=== PATIENT | male | born 1995 | race Caucasian/White ===

== ENCOUNTER 2019-02-08 18:11 | Inpatient (IN) | payer OTHER ==
[2019-02-08 19:15] VITALS: BMI 28.3
--- NOTE | 2019-02-08 21:39 | HP ---
COWS - Scale Resting Pulse: 0= [place] 80 or Below Sweatin=Flushed/Facial Moisture Restless Observation: 0= Sits Still Pupil Size: 1= Pupils >than Normal Bone or Joint Aches: 2= Severe Diffuse Aches Runny Nose/ Eye Tearin= Runny Nose/Eyes GI Upset > 30mins: 2= Nausea/Diarrhea (nausea, no vomiting) Tremor Observation: 2= Slight Tremor Visible Yawning Observation: 0= None Anxiety or Irritability: 4=Extreme Anxiety Goose Flesh Skin: 0=Smooth Skin COWS Score: 15 CIWA Score - Admission Criteria OASAS Guidelines: Admission for Medically Managed Detox: Requires at least one of the followin. CIWA greater than 12 2. Seizures within the past 24 hours 3. Delirium tremens within the past 24 hours 4. Hallucinations within the past 24 hours 5. Acute intervention needed for co occurring medical disorder 6. Acute intervention needed for co occurring psychiatric disorder 7. Severe withdrawal that cannot be handled at a lower level of care (continued vomiting, continued diarrhea, abnormal vital signs) requiring intravenous medication and/or fluids 8. Admission ROS [facility] Chief Complaint: Heroin withdrawal symptoms Allergies/Adverse Reactions: Allergies Allergy/AdvReac Type Severity Reaction Status Date / Time Penicillins Allergy Verified 02/08/19 20:16 Sulfa (Sulfonamide Allergy Verified 02/08/19 20:16 Antibiotics) sulfamethoxazole Allergy Verified 02/08/19 20:16 [From Bactrim] trimethoprim [From Bactrim] Allergy Verified 02/08/19 20:16 History of Present Illness: 23 years old male w2 years of opiate dependence and 6 months of heroin dependence is seeking admission to detox. This is his first in patient admission to detox and first admission to [facility]. He denies medical history and denies suicidal ideation at this time. - Ebola screening Have you traveled outside of the country in the last 21 days: No (N) Have you had contact with anyone from an Ebola affected area: No Have you been sick,other than usual withdrawal symptoms: No Do you have a fever: No - Review of Systems Constitutional: Chills, Loss of Appetite, Malaise, Changes in sleep EENT: reports: Sinus Pressure Respiratory: reports: No Symptoms reported Cardiac: reports: No Symptoms Reported GI: reports: Nausea, Poor Appetite, Poor Fluid Intake, Abdominal cramping : reports: No Symptoms Reported Musculoskeletal: reports: No Symptoms Reported Integumentary: reports: No Symptoms Reported, Dryness, Flushing Neuro: reports: Tremors Endocrine: reports: No Symptoms Reported Hematology: reports: No Symptoms Reported Psychiatric: reports: Mood/Affect Appropiate, Orientated x3 Other Systems: Reviewed and Negative Patient History - Patient Medical History Hx Asthma: No Hx Chronic Obstructive Pulmonary Disease (COPD): No Hx Cardiac Disorders: No Hx Hypertension: No Hx Seizures: No Hx Diabetes: No Hx Gastrointestinal Disorders: No Hx Genitourinary Disorders: No Hx Sexually Transmitted Disorders: No Hx Renal Disease (ESRD): No Hx Depression: Yes (NOT ON MEDICATION) Hx Suicide Attempt: No (DENIES SUICIDAL IDEATIN) Hx Schizophrenia: No - Patient Surgical History Past Surgical History: No Hx Neurologic Surgery: No Hx Cataract Extraction: No Hx Cardiac Surgery: No Hx Lung Surgery: No Hx Breast Surgery: No Hx Breast Biopsy: No Hx Abdominal Surgery: No Hx Appendectomy: No Hx Cholecystectomy: No Hx Genitourinary Surgery: No Hx Section: No Hx Orthopedic Surgery: No Anesthesia Reaction: No - PPD History Previous Implant?: Yes Documented Results: Negative w/o proof Implanted On Prior R Admission?: No PPD to be Administered?: Yes - Reproductive History Patient is a Female of Child Bearing Age (11 -55 yrs old): No (MALE) - Smoking Cessation Smoking history: Current every day smoker Have you smoked in the past 12 months: Yes Aproximately how many cigarettes per day: 9 Hx Chewing Tobacco Use: No Initiated information on smoking cessation: Yes 'Breaking Loose' booklet given: 02/08/19 - Substance & Tx. History Hx Alcohol Use: No Hx Substance Use: Yes Substance Use Type: Cocaine, Marijuana, Opiates Hx Substance Use Treatment: No - Substances Abused Heroin Route: Inhalation Frequency: 1-3 times last 30 days Amount used: 2 bags Age of first use: 21 Date of Last Use: 02/08/19 Percocet Route: Oral Frequency: Daily Amount used: 100mg Age of first use: 21 Date of Last Use: 02/08/19 Family Disease History - Family Disease History Family History: Denies Admission Physical Exam [facility] - Vital Signs Vital Signs: Vital Signs - 24 hr 02/08/19 19:10 Temperature 96.8 F L Pulse Rate 67 Respiratory 18 Rate Blood Pressure 117/80 - Physical General Appearance: Yes: Appropriately Dressed, Moderate Distress, Sweating, Anxious HEENTM: Yes: EOMI, Normocephalic, Normal Voice, Pharynx Normal, Tm's normal Respiratory: Yes: Lungs Clear, No Accessory Muscle Use Neck: Yes: Supple Breast: Yes: Breast Exam Deferred Cardiology: Yes: Regular Rhythm, Regular Rate Abdominal: Yes: Normal Bowel Sounds Genitourinary: Yes: Within Normal Limits Back: Yes: Normal Inspection Musculoskeletal: Yes: full range of Motion Extremities: Yes: Normal Capillary Refill, Tremors 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
[2019-02-08] MEDS ORDERED: MENTHOL/PHENOL 1 EACH UD MM PRN (21:50)
[2019-02-08] MEDS ORDERED: MAGNESIUM CITRATE 300 ML BOTTLE PO PRN (21:50)
[2019-02-08] MEDS ORDERED: MAG HYDROX/AL HYDROX/SIMETH 30 ML UNIT-DOSE CUP PO PRN (21:50)
[2019-02-08] MEDS ORDERED: IBUPROFEN 400 MG TABLET (FP) PO PRN (21:50)
[2019-02-08] MEDS ORDERED: MAGNESIUM HYDROX 2400MG/30ML ORAL SUSPENSION 30 ML CUP PO PRN (21:50)
[2019-02-08] MEDS ORDERED: METHOCARBAMOL 500 MG TABLET PO PRN (21:50)
[2019-02-08] MEDS ORDERED: BISMUTH SUBSALICYLATE 524 MG/30 ML UD PO PRN (21:50)
[2019-02-08] MEDS ORDERED: NICOTINE POLACRILEX 2 MG GUM BUC PRN (21:50)
[2019-02-08] MEDS ORDERED: ACETAMINOPHEN 325 MG TABLET (FP) PO PRN ×2 (21:50)
[2019-02-08] MEDS: THIAMINE HCL 100 MG TABLET (FP) PO SCH (22:38)
[2019-02-08] MEDS: hydrOXYzine PAMOATE 25 MG CAPSULE (FP) PO PRN (22:38)
[2019-02-08] MEDS: MELATONIN 5 MG TABLETS PO PRN (22:39)
[2019-02-08] MEDS ORDERED: METHADONE HCL 10 MG TABLET (FOR DETOX USE ONLY) PO ONE (23:00)
[2019-02-09 10:00] LABS: HEMATOCRIT 39.1 % (35.4-49); HEMOGLOBIN 13.8 GM/dL (11.7-16.9); MCH 30.7 pg (25.7-33.7); MCHC 35.2 g/dl (32.0-35.9); MEAN CELL VOLUME 87.3 fl (80-96); MEAN PLT VOLUME 8.2 fl (7.5-11.1); PLATELET COUNT 285 K/MM3 (134-434); RBC 4.48 M/mm3 (4.00-5.60); RDW 12.8 % (11.9-15.9); WHITE BLOOD COUNT 4.7 K/mm3 (4.0-10.0)
[2019-02-09] MEDS ORDERED: METHADONE HCL 5 MG TABLET (FOR DETOX USE ONLY) PO ONE (10:00)
[2019-02-09 10:05] LABS: ALBUMIN 3.5 g/dl (3.4-5.0); ALK PHOS 73 U/L (45-117); ANION GAP 6 MMOL/L (8-16); BILIRUBIN,TOTAL 1.4 mg/dL (0.2-1); BLOOD UREA NITROGEN 10 mg/dL (7-18); CALCIUM 8.1 mg/dL (8.5-10.1); CHLORIDE 105 mmol/L (98-107); CO2 29 mmol/L (21-32); CREATININE 0.8 mg/dL (0.55-1.3); GLUCOSE,RANDOM 79 mg/dL (74-106); POTASSIUM 3.8 mmol/L (3.5-5.1); SGOT/AST 15 U/L (15-37); SGPT/ALT 20 U/L (13-61); SODIUM 140 mmol/L (136-145); TOT PROT 6.5 g/dl (6.4-8.2)
[2019-02-09] MEDS: PRENATAL VITAMINS W/ FOLIC ACID TABLET (FP) PO SCH (12:24)
[2019-02-09] MEDS: NICOTINE 14 MG/24 HOURS TOPICAL PATCH TD SCH (12:26)
--- NOTE | 2019-02-09 14:19 | PN ---
S COWS - Scale Resting Pulse: 0= [place] 80 or Below Sweatin= Chills/Flushing Restless Observation: 0= Sits Still Pupil Size: 0= Normal to Room Light Bone or Joint Aches: 2= Severe Diffuse Aches Runny Nose/ Eye Tearin= None GI Upset > 30mins: 2= Nausea/Diarrhea Tremor Observation of Outstretched Hands: 2= Slight Tremor Visible Yawning Observation: 1= 1-2x During Session Anxiety or Irritability: 2=Irritable/Anxious Goose Flesh Skin: 3=Piloerection COWS Score: 13 S Progress Note (SOAP) Subjective: Nausea, Fatigue, Body Aches. Objective: PATIENT A & O X 3. IN NO ACUTE DISTRESS. 02/09/19 14:21 Vital Signs Temperature 98.2 F 02/09/19 13:22 Pulse Rate 55 L 02/09/19 13:22 Respiratory Rate 18 02/09/19 13:22 Blood Pressure 140/70 02/09/19 13:22 O2 Sat by Pulse Oximetry (%) Laboratory Tests 02/09/19 02/09/19 02/09/19 07:40 07:40 07:40 WBC 4.7 RBC 4.48 Hgb 13.8 Hct 39.1 MCV 87.3 MCH 30.7 MCHC 35.2 RDW 12.8 Plt Count 285 MPV 8.2 Sodium 140 Potassium 3.8 Chloride 105 Carbon Dioxide 29 Anion Gap 6 L BUN 10 Creatinine 0.8 Creat Clearance w eGFR 119.80 Random Glucose 79 Calcium 8.1 L Total Bilirubin 1.4 H AST 15 ALT 20 Alkaline Phosphatase 73 Total Protein 6.5 Albumin 3.5 RPR Titer Nonreactive LABS NOTED. Assessment: 02/09/19 14:21 WITHDRAWAL SYMPTOMS. HYPOCALCEMIA. Plan: CONTINUE DETOX. OSCAL, 250 MG PO BID FOR LOW CA LEVEL.
[2019-02-09] MEDS: hydrOXYzine PAMOATE 25 MG CAPSULE (FP) PO PRN ×2 (17:03→23:03)
[2019-02-09] MEDS: cloNIDine HCL 0.1 MG TABLET PO PRN ×2 (17:03→23:03)
[2019-02-09] MEDS: CALCIUM 250MG/VIT-D 125 UNITS 1 COMBO TABLET PO SCH (22:11)
[2019-02-09] MEDS: THIAMINE HCL 100 MG TABLET (FP) PO SCH (22:11)
[2019-02-09] MEDS: MELATONIN 5 MG TABLETS PO PRN (22:11)
--- NOTE | 2019-02-09 22:52 | EKG ---
Test Reason : Blood Pressure : / mmHG Vent. Rate : 058 BPM Atrial Rate : 058 BPM P-R Int : 134 ms QRS Dur : 096 ms QT Int : 422 ms P-R-T Axes : 004 046 024 degrees QTc Int : 414 ms SINUS BRADYCARDIA NONSPECIFIC ST ABNORMALITY ABNORMAL ECG NO PREVIOUS ECGS AVAILABLE Confirmed by ДМИТРИЙ PARIS MD ([id number]) on 02/09/2019 10:52:36 PM Referred By: Confirmed By:ДМИТРИЙ PARIS MD
--- NOTE | 2019-02-10 09:54 | PN ---
[facility] COWS - Scale Resting Pulse: 0= [place] 80 or Below Sweatin= Chills/Flushing Restless Observation: 3= Extraneous Movement Pupil Size: 1= Pupils >than Normal Bone or Joint Aches: 2= Severe Diffuse Aches Runny Nose/ Eye Tearin= Nasal Congestion GI Upset > 30mins: 2= Nausea/Diarrhea Tremor Observation of Outstretched Hands: 2= Slight Tremor Visible Yawning Observation: 1= 1-2x During Session Anxiety or Irritability: 2=Irritable/Anxious Goose Flesh Skin: 0=Smooth Skin COWS Score: 15 [facility] Progress Note (SOAP) Subjective: alert,irritable,anxious,interrupted sleep,pain in the body and back Objective: 02/10/19 09:53 Vital Signs Temperature 98.3 F 02/10/19 09:25 Pulse Rate 50 L 02/10/19 09:25 Respiratory Rate 18 02/10/19 09:25 Blood Pressure 117/55 L 02/10/19 09:25 O2 Sat by Pulse Oximetry (%) Assessment: 02/10/19 09:53 withdrawal symptom Plan: continue detox
[2019-02-10] MEDS ORDERED: METHADONE HCL 10 MG TABLET (FOR DETOX USE ONLY) PO ONE (10:00)
[2019-02-10] MEDS: CALCIUM 250MG/VIT-D 125 UNITS 1 COMBO TABLET PO SCH ×2 (11:45→22:06)
[2019-02-10] MEDS: PRENATAL VITAMINS W/ FOLIC ACID TABLET (FP) PO SCH (11:45)
[2019-02-10] MEDS: NICOTINE 14 MG/24 HOURS TOPICAL PATCH TD SCH (11:48)
[2019-02-10] MEDS: cloNIDine HCL 0.1 MG TABLET PO PRN ×2 (14:18→22:06)
[2019-02-10] MEDS: THIAMINE HCL 100 MG TABLET (FP) PO SCH (22:04)
[2019-02-10] MEDS: MELATONIN 5 MG TABLETS PO PRN (22:07)
[2019-02-10] MEDS: hydrOXYzine PAMOATE 25 MG CAPSULE (FP) PO PRN (22:07)
[2019-02-11] MEDS ORDERED: traZODone HCL 50 MG TABLET (FP) PO ONE (00:06)
[2019-02-11] MEDS ORDERED: METHADONE HCL 5 MG TABLET (FOR DETOX USE ONLY) PO ONE (06:00)
[2019-02-11 09:35] VITALS: BP 127/75; PULSE 58; TEMP 58
--- NOTE | 2019-02-11 11:54 | DS ---
[facility] Detox Discharge Summary Admission Date: 02/08/19 Discharge Date: 02/11/19 - History Present History: Opioid Dependence Pertinent Past History: pt was admitted for opiate detox- was given a 3 day detox. Pt will be in rehab in [place] where he can get suboxone for continued Rx of his physical dependence. d/ w pt at length about the importance of MAT treatment of opioid use disorder - Physical Exam Results Vital Signs: Vital Signs Temperature 58 F L 02/11/19 09:35 Pulse Rate 58 L 02/11/19 09:35 Respiratory Rate 18 02/11/19 09:35 Blood Pressure 127/75 02/11/19 09:35 O2 Sat by Pulse Oximetry (%) - Treatment Hospital Course: Detox Protocol Followed, Detoxed Safely, Responded well, Discharged Condition Good, Rehab Referral Accepted - Medication Discharge Medications: Ambulatory Orders NK [No Known Home Medication] 02/08/19
== END 2019-02-11 10:32 | disposition home or self-care (01) | DRG 897 ==
LOC: YASAS 18:11 → Y6N 21:57
PROVIDERS: ADMIT Surgery; ATTEND Surgery
PROC: HZ2ZZZZ Detoxification Services for Substance Abuse Treatment (ICD-10-PCS; principal; 2019-02-08)
DX: F11.23 Opioid dependence with withdrawal (principal); E83.51 Hypocalcemia; Z88.0 Allergy status to penicillin; Z88.2 Allergy status to sulfonamides
CPT/HCPCS: 36415; 80053; 85027; 86593; 93005; 93010; J0735

== ENCOUNTER 2019-04-04 11:22 | Inpatient (IN) | payer OTHER ==
[2019-04-04 12:16] VITALS: BMI 28.4
--- NOTE | 2019-04-04 12:44 | HP ---
COWS - Scale Resting Pulse: 0= [place] 80 or Below Sweatin= Chills/Flushing Restless Observation: 1= Difficult to Sit Still Pupil Size: 1= Pupils >than Normal Bone or Joint Aches: 2= Severe Diffuse Aches Runny Nose/ Eye Tearin= Runny Nose/Eyes GI Upset > 30mins: 2= Nausea/Diarrhea Tremor Observation: 2= Slight Tremor Visible Yawning Observation: 1= 1-2x During Session Anxiety or Irritability: 2=Irritable/Anxious Goose Flesh Skin: 0=Smooth Skin COWS Score: 14 CIWA Score - Admission Criteria OASAS Guidelines: Admission for Medically Managed Detox: Requires at least one of the followin. CIWA greater than 12 2. Seizures within the past 24 hours 3. Delirium tremens within the past 24 hours 4. Hallucinations within the past 24 hours 5. Acute intervention needed for co occurring medical disorder 6. Acute intervention needed for co occurring psychiatric disorder 7. Severe withdrawal that cannot be handled at a lower level of care (continued vomiting, continued diarrhea, abnormal vital signs) requiring intravenous medication and/or fluids 8. Admission ROS S - HPI Chief Complaint: i need help to stop using opiate,cocaine and marijuana Allergies/Adverse Reactions: Allergies Allergy/AdvReac Type Severity Reaction Status Date / Time Penicillins Allergy Severe Hives Verified 04/04/19 12:08 Sulfa (Sulfonamide Allergy Severe Hives Verified 04/04/19 12:08 Antibiotics) sulfamethoxazole Allergy Severe Swelling Verified 04/04/19 12:08 [From Bactrim] trimethoprim [From Bactrim] Allergy Severe Swelling Verified 04/04/19 12:08 History of Present Illness: this 23 years old male with opiate dependence,seeking help,withdrawal symptom, had previous admission before insomnia last admission 02/08/19 to 02/11/19 stated need help to stop using may go to rehab after detox patient also marijuana dependence and cocaine abused Exam Limitations: No Limitations - Ebola screening Have you traveled outside of the country in the last 21 days: No (N) Have you had contact with anyone from an Ebola affected area: No Do you have a fever: No - Review of Systems Constitutional: Chills, Loss of Appetite, Malaise, Night Sweats, Changes in sleep, Weakness EENT: reports: Tearing, Nose Congestion Respiratory: reports: No Symptoms reported Cardiac: reports: No Symptoms Reported GI: reports: Nausea, Vomiting, Abdominal cramping : reports: No Symptoms Reported Musculoskeletal: reports: Back Pain, Joint Pain, Muscle Pain, Joint Stiffness Integumentary: reports: Dryness Neuro: reports: Headache, Tremors Endocrine: reports: No Symptoms Reported Hematology: reports: No Symptoms Reported Psychiatric: reports: No Sypmtoms Reported, Judgement Intact, Mood/Affect Appropiate, Orientated x3 Patient History - Patient Medical History Hx Anemia: No Hx Asthma: No Hx Chronic Obstructive Pulmonary Disease (COPD): No Hx Cancer: No Hx Cardiac Disorders: No Hx Hypertension: No Hx Hypercholesterolemia: No Hx Pacemaker: No HX Cerebrovascular Accident: No Hx Seizures: No Hx Dementia: No Hx Diabetes: No Hx Gastrointestinal Disorders: No Hx Liver Disease: No Hx Genitourinary Disorders: No Hx Sexually Transmitted Disorders: No Hx Renal Disease (ESRD): No Hx Thyroid Disease: No Hx Human Immunodeficiency Virus (HIV): No (03/28/19 negative) Hx Depression: Yes (NOT ON MEDICATION) Hx Suicide Attempt: No (DENIES SUICIDAL IDEATION) Hx Schizophrenia: No Other Medical History: no suicidal,no homicidal - Patient Surgical History Past Surgical History: No Hx Neurologic Surgery: No Hx Cataract Extraction: No Hx Cardiac Surgery: No Hx Lung Surgery: No Hx Breast Surgery: No Hx Breast Biopsy: No Hx Abdominal Surgery: No Hx Appendectomy: No Hx Cholecystectomy: No Hx Genitourinary Surgery: No Hx Section: No Hx Orthopedic Surgery: No Anesthesia Reaction: No - PPD History Previous Implant?: Yes Documented Results: Negative w/proof Implanted On Prior [facility] Admission?: Yes Date: 02/10/19 Results: 0 mm PPD to be Administered?: No - Smoking Cessation Smoking history: Current every day smoker Have you smoked in the past 12 months: Yes Aproximately how many cigarettes per day: 9 Hx Chewing Tobacco Use: No Initiated information on smoking cessation: Yes 'Breaking Loose' booklet given: 04/04/19 - Substance & Tx. History Hx Alcohol Use: No Hx Substance Use: Yes Substance Use Type: Opiates Hx Substance Use Treatment: Yes (last [facility] 02/08/19 to 02/11/19) - Substances abused Other Other (specify): Percocet Substance route: Oral Frequency: 3-6 times per week Amount used: (4) 10-325 Age of first use: 18 Date of last use: 04/03/19 Oxycontin Other (specify): oxcodone (M-30's) Substance route: Inhalation Frequency: Daily Amount used: 90mg Age of first use: 20 Date of last use: 04/04/19 Cocaine Substance route: Inhalation Frequency: 1-2 times per week Amount used: 100$ Age of first use: 23 Date of last use: 04/02/19 Marijuana/Hashish Substance route: Smoking Frequency: Daily Amount used: 50$ Age of first use: 18 Date of last use: 04/04/19 Family Disease History - Family Disease History Family History: Denies Admission Physical Exam [facility] - Vital Signs Vital Signs: Vital Signs - 24 hr 04/04/19 12:09 Temperature 98.5 F Pulse Rate 65 Respiratory 18 Rate Blood Pressure 115/66 - Physical General Appearance: Yes: Moderate Distress, Tremorous, Irritable, Sweating, Anxious HEENTM: Yes: Normal ENT Inspection, JAKE, Pharynx Normal Respiratory: Yes: Lungs Clear, Normal Breath Sounds, No Respiratory Distress Neck: Yes: Within Normal Limits, Supple, Trachea in good position Breast: Yes: Within Normal Limits Cardiology: Yes: Within Normal Limits, Regular Rhythm, Regular Rate, S1, S2 Abdominal: Yes: Within Normal Limits, Normal Bowel Sounds, Non Tender, Flat, Soft Genitourinary: Yes: Within Normal Limits Back: Yes: Muscle Spasm Musculoskeletal: Yes: full range of Motion, Back pain, Muscle Pain Extremities: Yes: Tremors 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, Fully Oriented, Alert, Motor Strength 5/5 Integumentary: Yes: Dry Lymphatic: Yes: Within Normal Limits - Diagnostic (1) Opioid dependence with withdrawal Status: Acute (2) Nicotine dependence Status: Chronic Qualifiers: Nicotine product type: cigarettes Substance use status: uncomplicated Qualified Code(s): F17.210 - Nicotine dependence, cigarettes, uncomplicated (3) Insomnia Status: Acute Qualifiers: Insomnia type: unspecified Qualified Code(s): G47.00 - Insomnia, unspecified (4) Cocaine abuse Status: Chronic (5) Cannabis dependence Status: Chronic Cleared for Admission S - Detox or Rehab [facility] Level of Care: Medically Managed Detox Regimen/Protocol: Methadone Breathalyzer - Breathalyzer Breathalyzer: 0 Inpatient Rehab Admission - Rehab Decision to Admit Inpatient rehab admission?: No
[2019-04-04] MEDS ORDERED: BISMUTH SUBSALICYLATE 524 MG/30 ML UD PO PRN (12:53)
[2019-04-04] MEDS ORDERED: IBUPROFEN 400 MG TABLET (FP) PO PRN (12:53)
[2019-04-04] MEDS ORDERED: MAG HYDROX/AL HYDROX/SIMETH 30 ML UNIT-DOSE CUP PO PRN (12:53)
[2019-04-04] MEDS ORDERED: MENTHOL/PHENOL 1 EACH UD MM PRN (12:53)
[2019-04-04] MEDS ORDERED: hydrOXYzine PAMOATE 25 MG CAPSULE (FP) PO PRN (12:53)
[2019-04-04] MEDS ORDERED: MAGNESIUM HYDROX 2400MG/30ML ORAL SUSPENSION 30 ML CUP PO PRN (12:53)
[2019-04-04] MEDS ORDERED: METHOCARBAMOL 500 MG TABLET PO PRN (12:53)
[2019-04-04] MEDS ORDERED: cloNIDine HCL 0.1 MG TABLET PO PRN (12:53)
[2019-04-04] MEDS ORDERED: MELATONIN 5 MG TABLETS PO PRN (12:53)
[2019-04-04] MEDS ORDERED: MAGNESIUM CITRATE 300 ML BOTTLE PO PRN (12:53)
[2019-04-04] MEDS ORDERED: ACETAMINOPHEN 325 MG TABLET (FP) PO PRN ×2 (12:53)
[2019-04-04] MEDS ORDERED: NICOTINE 21 MG/24 HOURS TOPICAL PATCH TD SCH (13:00)
[2019-04-04] MEDS ORDERED: METHADONE HCL 10 MG TABLET (FOR DETOX USE ONLY) PO ONE ×2 (13:04→23:00)
[2019-04-04] MEDS: diazePAM 5 MG TABLET PO PRN ×3 (13:43→23:35)
[2019-04-04 15:56] VITALS: BP 110/70; PULSE 79; TEMP 97.6
[2019-04-04] MEDS ORDERED: THIAMINE HCL 100 MG TABLET (FP) PO SCH (22:00)
--- NOTE | 2019-04-05 01:00 | DS ---
[facility] Detox Discharge Summary Admission Date: 04/04/19 Discharge Date: 04/05/19 - History Present History: Cannabis Dependence, Cocaine Dependence, Opioid Dependence Additional Comments: Opiate withdrawal and also using marijuana, cocaine and nicotine. - Physical Exam Results Vital Signs: Vital Signs Temperature 97.6 F 04/04/19 15:55 Pulse Rate 79 04/04/19 15:55 Respiratory Rate 18 04/04/19 15:55 Blood Pressure 110/70 04/04/19 15:55 O2 Sat by Pulse Oximetry (%) Pertinent Admission Physical Exam Findings: Patient admitted in withdrawal r/t opiate dependence. Co-occurring marijuana and cocaine dependence. Hx insomnia. Patient not in facility long enough to complete lab assessment. - Treatment Hospital Course: Detox Protocol Followed (Patient), Discharged Condition Good ( Patient was alert and oriented in no apparent distress. Gait steady. No tremors. ) - Medication Discharge Medications: Ambulatory Orders NK [No Known Home Medication] 02/08/19 - Diagnosis (1) Cannabis dependence Current Visit: Yes Status: Chronic (2) Cocaine abuse Current Visit: Yes Status: Chronic (3) Insomnia Current Visit: Yes Status: Acute Qualifiers: Insomnia type: unspecified Qualified Code(s): G47.00 - Insomnia, unspecified (4) Nicotine dependence Current Visit: Yes Status: Chronic Qualifiers: Nicotine product type: cigarettes Substance use status: uncomplicated Qualified Code(s): F17.210 - Nicotine dependence, cigarettes, uncomplicated (5) Opioid dependence with withdrawal Current Visit: Yes Status: Acute - AMA Did Patient Leave Against Medical Advice: Yes
--- NOTE | 2019-04-05 02:17 | PN ---
[facility] Progress Note Note: Patient states when came in was ill and sick and didn't realize the date. States has to leave for business reasons and unable to stay until a.m. Discussed overdose risks and prevention. Patient states he will get a Narcan Kit. Patient leaving AMA despite encouragement. States taking an Uber.
[2019-04-05] MEDS ORDERED: METHADONE HCL 10 MG TABLET (FOR DETOX USE ONLY) PO ONE (10:00)
[2019-04-05] MEDS ORDERED: PRENATAL VITAMINS W/ FOLIC ACID TABLET (FP) PO SCH (10:00)
[2019-04-06] MEDS ORDERED: METHADONE HCL 10 MG TABLET (FOR DETOX USE ONLY) PO ONE (10:00)
[2019-04-07] MEDS ORDERED: METHADONE HCL 10 MG TABLET (FOR DETOX USE ONLY) PO ONE (10:00)
[2019-04-07] MEDS ORDERED: METHADONE (DETOX) 10 MG, METHADONE (DETOX) 5 MG PO ONE (10:00)
[2019-04-08] MEDS ORDERED: METHADONE HCL 5 MG TABLET (FOR DETOX USE ONLY) PO ONE (06:00)
[2019-04-08] MEDS ORDERED: METHADONE HCL 10 MG TABLET (FOR DETOX USE ONLY) PO ONE (10:00)
[2019-04-09] MEDS ORDERED: METHADONE HCL 5 MG TABLET (FOR DETOX USE ONLY) PO ONE (06:00)
== END 2019-04-05 01:12 | disposition left against medical advice (07) | DRG 894 ==
LOC: YASAS 11:22 → Y3N 12:59
PROVIDERS: ADMIT Surgery; ATTEND Surgery
PROC: HZ2ZZZZ Detoxification Services for Substance Abuse Treatment (ICD-10-PCS; principal; 2019-04-04)
DX: F11.23 Opioid dependence with withdrawal (principal); F14.10 Cocaine abuse, uncomplicated; F12.20 Cannabis dependence, uncomplicated; F17.210 Nicotine dependence, cigarettes, uncomplicated; G47.00 Insomnia, unspecified; Z88.0 Allergy status to penicillin; Z88.2 Allergy status to sulfonamides

== ENCOUNTER 2019-05-03 20:12 | Inpatient (IN) | payer OTHER ==
[2019-05-03 20:26] VITALS: BMI 28.7
--- NOTE | 2019-05-03 20:43 | HP ---
COWS - Scale Resting Pulse: 1= [place] 81-100 Sweatin=Flushed/Facial Moisture Restless Observation: 1= Difficult to Sit Still Pupil Size: 1= Pupils >than Normal Bone or Joint Aches: 2= Severe Diffuse Aches Runny Nose/ Eye Tearin= Runny Nose/Eyes GI Upset > 30mins: 1= Stomach Cramp Tremor Observation: 4= Gross Tremor/Twitching Yawning Observation: 0= None Anxiety or Irritability: 2=Irritable/Anxious Goose Flesh Skin: 0=Smooth Skin COWS Score: 16 CIWA Score - Admission Criteria [facility]ASAS Guidelines: Admission for Medically Managed Detox: Requires at least one of the followin. CIWA greater than 12 2. Seizures within the past 24 hours 3. Delirium tremens within the past 24 hours 4. Hallucinations within the past 24 hours 5. Acute intervention needed for co occurring medical disorder 6. Acute intervention needed for co occurring psychiatric disorder 7. Severe withdrawal that cannot be handled at a lower level of care (continued vomiting, continued diarrhea, abnormal vital signs) requiring intravenous medication and/or fluids 8. Admission ROS S - HPI Chief Complaint: DEPENDENT ON PERCOCET, FENTANYL, COCAINE AND MARIJUANA Allergies/Adverse Reactions: Allergies Allergy/AdvReac Type Severity Reaction Status Date / Time Penicillins Allergy Severe Hives Verified 05/03/19 20:22 Sulfa (Sulfonamide Allergy Severe Hives Verified 05/03/19 20:22 Antibiotics) sulfamethoxazole Allergy Severe Swelling Verified 05/03/19 20:22 [From Bactrim] trimethoprim [From Bactrim] Allergy Severe Swelling Verified 05/03/19 20:22 History of Present Illness: THE PT. IS REQUESTING ADMISSION TO THE DETOX UNIT AND CAME FOR MEDICAL CLEARANCE. Exam Limitations: No Limitations - Ebola screening Have you traveled outside of the country in the last 21 days: No (N) Have you had contact with anyone from an Ebola affected area: No Have you been sick,other than usual withdrawal symptoms: No Do you have a fever: No - Review of Systems Constitutional: See HPI, Malaise, Weakness EENT: reports: See HPI, Nose Congestion Respiratory: reports: See HPI Cardiac: reports: See HPI GI: reports: See HPI, Nausea, Abdominal cramping : reports: No Symptoms Reported, See HPI Musculoskeletal: reports: See HPI, Muscle Pain, Muscle Weakness Integumentary: reports: See HPI, Flushing, Sweating Neuro: reports: See HPI, Headache, Tremors, Weakness Endocrine: reports: See HPI Hematology: reports: See HPI Psychiatric: reports: Judgement Intact, Orientated x3, Anxious, Depressed Patient History - Patient Medical History Hx Anemia: No Hx Asthma: No Hx Chronic Obstructive Pulmonary Disease (COPD): No Hx Cancer: No Hx Cardiac Disorders: No Hx Hypertension: No Hx Hypercholesterolemia: No Hx Pacemaker: No HX Cerebrovascular Accident: No Hx Seizures: No Hx Dementia: No Hx Diabetes: No Hx Gastrointestinal Disorders: No Hx Liver Disease: No Hx Genitourinary Disorders: No Hx Sexually Transmitted Disorders: No Hx Renal Disease (ESRD): No Hx Thyroid Disease: No Hx Human Immunodeficiency Virus (HIV): No (03/28/19 negative) Hx Hepatitis C: No Hx Depression: No Hx Suicide Attempt: No (DENIES SUICIDAL IDEATION) Hx Schizophrenia: No Other Medical History: ANXIETY ATTACKS NOW AND THEN - Patient Surgical History Past Surgical History: No Hx Neurologic Surgery: No Hx Cataract Extraction: No Hx Cardiac Surgery: No Hx Lung Surgery: No Hx Breast Surgery: No Hx Breast Biopsy: No Hx Abdominal Surgery: No Hx Appendectomy: No Hx Cholecystectomy: No Hx Genitourinary Surgery: No Hx Section: No Hx Orthopedic Surgery: No Anesthesia Reaction: No - PPD History Date: 02/10/19 Results: 0 mm - Smoking Cessation Smoking history: Current every day smoker Have you smoked in the past 12 months: Yes Aproximately how many cigarettes per day: 9 Hx Chewing Tobacco Use: No Initiated information on smoking cessation: Yes 'Breaking Loose' booklet given: 05/03/19 - Substance & Tx. History Hx Alcohol Use: No Hx Substance Use: Yes Substance Use Type: Cocaine, Marijuana, Opiates Hx Substance Use Treatment: Yes - Substances abused Other Other (specify): Percocet Substance route: Oral Frequency: 3-6 times per week Amount used: (4 10-325 Age of first use: 18 Date of last use: 05/01/19 Oxycontin Other (specify): FENTANYL TABS. Substance route: Inhalation Frequency: Daily Amount used: 30mg X UP TO 10 TABS. Age of first use: 20 Date of last use: 05/01/19 Cocaine Substance route: Inhalation Frequency: 1-2 times per week Amount used: 100$ Age of first use: 23 Date of last use: 05/01/19 Marijuana/Hashish Substance route: Smoking Frequency: Daily Amount used: 50$ Age of first use: 18 Date of last use: 05/01/19 Family Disease History - Family Disease History Family History: Denies Admission Physical Exam [facility] - Vital Signs Vital Signs: Vital Signs - 24 hr 05/03/19 20:22 Temperature 98.2 F Pulse Rate 88 Respiratory 18 Rate Blood Pressure 146/97 - Physical General Appearance: Yes: No Apparent Distress, Nourished, Appropriately Dressed , Tremorous, Sweating, Anxious HEENTM: Yes: Hearing grossly Normal, Normocephalic, Normal Voice, JAKE, Pharynx Normal Respiratory: Yes: Chest Non-Tender, Lungs Clear, Normal Breath Sounds, No Respiratory Distress, No Accessory Muscle Use Neck: Yes: No masses,lesions,Nodules, Supple, Trachea in good position Breast: Yes: Breast Exam Deferred, Axillae without masses Cardiology: Yes: Regular Rhythm, S1, S2, Tachycardia Abdominal: Yes: Normal Bowel Sounds, Non Tender, Flat, Soft Back: Yes: Normal Inspection Musculoskeletal: Yes: full range of Motion, Gait Steady, Pelvis Stable, Muscle Pain, Muscle weakness Extremities: Yes: Normal Capillary Refill, Normal Range of Motion, Non-Tender, Tremors Neurological: Yes: table operator II-XII NML intact, Fully Oriented, Alert, Motor Strength 5/5, Normal Response Integumentary: Yes: Normal Color, Warm, Moist Lymphatic: Yes: Within Normal Limits - Diagnostic (1) Opioid dependence with withdrawal Current Visit: No Status: Chronic (2) Cannabis dependence Current Visit: No Status: Chronic (3) Cocaine abuse Current Visit: No Status: Chronic (4) Nicotine dependence Current Visit: No Status: Chronic Qualifiers: Nicotine product type: cigarettes Substance use status: uncomplicated Qualified Code(s): F17.210 - Nicotine dependence, cigarettes, uncomplicated Cleared for Admission [facility] - Detox or Rehab [facility] Level of Care: Medically Supervised Detox Regimen/Protocol: Methadone/Valium Breathalyzer - Breathalyzer Breathalyzer: 0 Inpatient Rehab Admission - Rehab Decision to Admit Inpatient rehab admission?: No
[2019-05-03] MEDS ORDERED: NICOTINE POLACRILEX 2 MG GUM BUC PRN (20:50)
[2019-05-03] MEDS ORDERED: MAGNESIUM CITRATE 300 ML BOTTLE PO PRN (20:50)
[2019-05-03] MEDS ORDERED: MELATONIN 5 MG TABLETS PO PRN (20:50)
[2019-05-03] MEDS ORDERED: BISMUTH SUBSALICYLATE 524 MG/30 ML UD PO PRN (20:50)
[2019-05-03] MEDS ORDERED: cloNIDine HCL 0.1 MG TABLET PO PRN (20:50)
[2019-05-03] MEDS ORDERED: IBUPROFEN 400 MG TABLET (FP) PO PRN (20:50)
[2019-05-03] MEDS ORDERED: MAG HYDROX/AL HYDROX/SIMETH 30 ML UNIT-DOSE CUP PO PRN (20:50)
[2019-05-03] MEDS ORDERED: MAGNESIUM HYDROX 2400MG/30ML ORAL SUSPENSION 30 ML CUP PO PRN (20:50)
[2019-05-03] MEDS ORDERED: MENTHOL/PHENOL 1 EACH UD MM PRN (20:50)
[2019-05-03] MEDS ORDERED: METHOCARBAMOL 500 MG TABLET PO PRN (20:50)
[2019-05-03] MEDS ORDERED: ACETAMINOPHEN 325 MG TABLET (FP) PO PRN ×2 (20:50)
[2019-05-03] MEDS: diazePAM 5 MG TABLET PO PRN (21:30)
[2019-05-03] MEDS: hydrOXYzine PAMOATE 25 MG CAPSULE (FP) PO PRN (21:31)
[2019-05-03] MEDS: CYCLOBENZAPRINE HCL 10 MG TABLET (FP) PO PRN (22:56)
[2019-05-03] MEDS: THIAMINE HCL 100 MG TABLET (FP) PO SCH (22:57)
[2019-05-03] MEDS: diazePAM 5 MG TABLET PO SCH (22:57)
[2019-05-03] MEDS ORDERED: METHADONE HCL 10 MG TABLET (FOR DETOX USE ONLY) PO ONE (23:00)
[2019-05-04] MEDS: diazePAM 5 MG TABLET PO SCH ×3 (06:44→22:22)
[2019-05-04 09:50] LABS: HEMATOCRIT 42.6 % (35.4-49); HEMOGLOBIN 14.5 GM/dL (11.7-16.9); MCH 29.7 pg (25.7-33.7); MEAN CELL VOLUME 87.1 fl (80-96); MEAN PLT VOLUME 8.3 fl (7.5-11.1); PLATELET COUNT 334 K/MM3 (134-434); RBC 4.89 M/mm3 (4.00-5.60); RDW 12.7 % (11.9-15.9); WHITE BLOOD COUNT 6.8 K/mm3 (4.0-10.0)
[2019-05-04] MEDS ORDERED: METHADONE HCL 5 MG TABLET (FOR DETOX USE ONLY) PO ONE (10:00)
[2019-05-04 10:07] LABS: ALBUMIN 3.9 g/dl (3.4-5.0); BILIRUBIN,TOTAL 1.5 mg/dL (0.2-1); BLOOD UREA NITROGEN 11.7 mg/dL (7-18); CALCIUM 9.5 mg/dL (8.5-10.1); CREATININE 0.9 mg/dL (0.55-1.3); POTASSIUM 3.7 mmol/L (3.5-5.1); TOT PROT 7.1 g/dl (6.4-8.2)
[2019-05-04] MEDS: PRENATAL VITAMINS W/ FOLIC ACID TABLET (FP) PO SCH (10:24)
[2019-05-04] MEDS: NICOTINE 14 MG/24 HOURS TOPICAL PATCH TD SCH (10:25)
--- NOTE | 2019-05-04 13:25 | PN ---
[facility] COWS - Scale Resting Pulse: 0= [place] 80 or Below Sweatin= Chills/Flushing Restless Observation: 1= Difficult to Sit Still Pupil Size: 0= Normal to Room Light Bone or Joint Aches: 0= None Runny Nose/ Eye Tearin= Runny Nose/Eyes GI Upset > 30mins: 0= None Tremor Observation of Outstretched Hands: 2= Slight Tremor Visible Yawning Observation: 1= 1-2x During Session Anxiety or Irritability: 2=Irritable/Anxious Goose Flesh Skin: 0=Smooth Skin COWS Score: 9 [facility] Progress Note (SOAP) Subjective: Tremors, Fatigue, Interrupted Sleep. Objective: PATIENT A & O X 3. IN NO ACUTE DISTRESS. 05/04/19 13:26 Vital Signs Temperature 96.8 F L 05/04/19 12:48 Pulse Rate 66 05/04/19 12:48 Respiratory Rate 20 05/04/19 12:48 Blood Pressure 145/79 05/04/19 12:48 O2 Sat by Pulse Oximetry (%) Laboratory Tests 05/04/19 05/04/19 05/04/19 07:00 07:00 07:00 WBC 6.8 RBC 4.89 Hgb 14.5 Hct 42.6 MCV 87.1 MCH 29.7 MCHC 34.0 RDW 12.7 Plt Count 334 MPV 8.3 Sodium 141 Potassium 3.7 Chloride 105 Carbon Dioxide 31 Anion Gap 5 L BUN 11.7 Creatinine 0.9 Est GFR (CKD-EPI)AfAm 139.04 Est GFR (CKD-EPI)NonAf 119.96 Random Glucose 96 Calcium 9.5 Total Bilirubin 1.5 H AST 25 ALT 22 Alkaline Phosphatase 98 Total Protein 7.1 Albumin 3.9 RPR Titer Nonreactive LABS NOTED. Assessment: 05/04/19 13:27 WITHDRAWAL SYMPTOMS. HYPERBILIRUBINEMIA. Plan: CONTINUE DETOX.
[2019-05-04] MEDS: diazePAM 5 MG TABLET PO PRN (17:09)
[2019-05-04] MEDS: hydrOXYzine PAMOATE 25 MG CAPSULE (FP) PO PRN (17:09)
[2019-05-04] MEDS: CYCLOBENZAPRINE HCL 10 MG TABLET (FP) PO PRN (17:09)
[2019-05-04] MEDS: THIAMINE HCL 100 MG TABLET (FP) PO SCH (22:22)
--- NOTE | 2019-05-05 09:18 | PN ---
S COWS - Scale Resting Pulse: 0= [place] 80 or Below Sweatin= Chills/Flushing Restless Observation: 1= Difficult to Sit Still Pupil Size: 1= Pupils >than Normal Bone or Joint Aches: 2= Severe Diffuse Aches Runny Nose/ Eye Tearin= Nasal Congestion GI Upset > 30mins: 2= Nausea/Diarrhea Tremor Observation of Outstretched Hands: 1= Tremor [place], Not Seen Yawning Observation: 1= 1-2x During Session Anxiety or Irritability: 2=Irritable/Anxious Goose Flesh Skin: 0=Smooth Skin COWS Score: 12 S Progress Note (SOAP) Subjective: alert,irritable,anxious,interrupted sleep,pain in the body and back Objective: 05/05/19 09:17 Vital Signs Temperature 97.7 F 05/05/19 06:00 Pulse Rate 70 05/05/19 06:00 Respiratory Rate 18 05/05/19 06:00 Blood Pressure 126/56 L 05/05/19 06:00 O2 Sat by Pulse Oximetry (%) Laboratory Last Values WBC 6.8 K/mm3 (4.0-10.0) 05/04/19 07:00 RBC 4.89 M/mm3 (4.00-5.60) 05/04/19 07:00 Hgb 14.5 GM/dL (11.7-16.9) 05/04/19 07:00 Hct 42.6 % (35.4-49) 05/04/19 07:00 MCV 87.1 fl (80-96) 05/04/19 07:00 MCH 29.7 pg (25.7-33.7) 05/04/19 07:00 MCHC 34.0 g/dl (32.0-35.9) 05/04/19 07:00 RDW 12.7 % (11.9-15.9) 05/04/19 07:00 Plt Count 334 K/MM3 (134-434) 05/04/19 07:00 MPV 8.3 fl (7.5-11.1) 05/04/19 07:00 Sodium 141 mmol/L (136-145) 05/04/19 07:00 Potassium 3.7 mmol/L (3.5-5.1) 05/04/19 07:00 Chloride 105 mmol/L (98-107) 05/04/19 07:00 Carbon Dioxide 31 mmol/L (21-32) 05/04/19 07:00 Anion Gap 5 MMOL/L (8-16) L 05/04/19 07:00 BUN 11.7 mg/dL (7-18) 05/04/19 07:00 Creatinine 0.9 mg/dL (0.55-1.3) 05/04/19 07:00 Est GFR (CKD-EPI)AfAm 139.04 05/04/19 07:00 Est GFR (CKD-EPI)NonAf 119.96 05/04/19 07:00 Random Glucose 96 mg/dL (74-106) 05/04/19 07:00 Calcium 9.5 mg/dL (8.5-10.1) 05/04/19 07:00 Total Bilirubin 1.5 mg/dL (0.2-1) H 05/04/19 07:00 AST 25 U/L (15-37) 05/04/19 07:00 ALT 22 U/L (13-61) 05/04/19 07:00 Alkaline Phosphatase 98 U/L (45-117) 05/04/19 07:00 Total Protein 7.1 g/dl (6.4-8.2) 05/04/19 07:00 Albumin 3.9 g/dl (3.4-5.0) 05/04/19 07:00 RPR Titer Nonreactive (NONREACTIVE) 05/04/19 07:00 Assessment: 05/05/19 09:18 withdrawal symptom Plan: continue detox
[2019-05-05 09:38] VITALS: BP 131/79; PULSE 90; TEMP 97.5
--- NOTE | 2019-05-05 09:59 | PN ---
[facility] Progress Note Note: patient did not want to continue treatment stated he has to go to longterm rehab,high risk of relapsing is high, patient understood,patient signed release ama,advice to to to nearest emergency room if any problem or call [phone]
[2019-05-05] MEDS ORDERED: METHADONE HCL 10 MG TABLET (FOR DETOX USE ONLY) PO ONE (10:00)
[2019-05-05] MEDS ORDERED: diazePAM 5 MG TABLET PO SCH (10:00)
--- NOTE | 2019-05-05 10:04 | DS ---
[facility] Detox Discharge Summary Admission Date: 05/03/19 Discharge Date: 05/05/19 - History Present History: Cannabis Dependence, Cocaine Dependence, Opioid Dependence Additional Comments: patient signed ama stated he is going to [facility] rehab Pertinent Past History: nicotine dependence - Physical Exam Results Vital Signs: Vital Signs Temperature 97.5 F L 05/05/19 09:28 Pulse Rate 90 05/05/19 09:28 Respiratory Rate 18 05/05/19 09:28 Blood Pressure 131/79 05/05/19 09:28 O2 Sat by Pulse Oximetry (%) Pertinent Admission Physical Exam Findings: withdrawal signs and symptom Laboratory Last Values WBC 6.8 K/mm3 (4.0-10.0) 05/04/19 07:00 RBC 4.89 M/mm3 (4.00-5.60) 05/04/19 07:00 Hgb 14.5 GM/dL (11.7-16.9) 05/04/19 07:00 Hct 42.6 % (35.4-49) 05/04/19 07:00 MCV 87.1 fl (80-96) 05/04/19 07:00 MCH 29.7 pg (25.7-33.7) 05/04/19 07:00 MCHC 34.0 g/dl (32.0-35.9) 05/04/19 07:00 RDW 12.7 % (11.9-15.9) 05/04/19 07:00 Plt Count 334 K/MM3 (134-434) 05/04/19 07:00 MPV 8.3 fl (7.5-11.1) 05/04/19 07:00 Sodium 141 mmol/L (136-145) 05/04/19 07:00 Potassium 3.7 mmol/L (3.5-5.1) 05/04/19 07:00 Chloride 105 mmol/L (98-107) 05/04/19 07:00 Carbon Dioxide 31 mmol/L (21-32) 05/04/19 07:00 Anion Gap 5 MMOL/L (8-16) L 05/04/19 07:00 BUN 11.7 mg/dL (7-18) 05/04/19 07:00 Creatinine 0.9 mg/dL (0.55-1.3) 05/04/19 07:00 Est GFR (CKD-EPI)AfAm 139.04 05/04/19 07:00 Est GFR (CKD-EPI)NonAf 119.96 05/04/19 07:00 Random Glucose 96 mg/dL (74-106) 05/04/19 07:00 Calcium 9.5 mg/dL (8.5-10.1) 05/04/19 07:00 Total Bilirubin 1.5 mg/dL (0.2-1) H 05/04/19 07:00 AST 25 U/L (15-37) 05/04/19 07:00 ALT 22 U/L (13-61) 05/04/19 07:00 Alkaline Phosphatase 98 U/L (45-117) 05/04/19 07:00 Total Protein 7.1 g/dl (6.4-8.2) 05/04/19 07:00 Albumin 3.9 g/dl (3.4-5.0) 05/04/19 07:00 RPR Titer Nonreactive (NONREACTIVE) 05/04/19 07:00 - Medication Discharge Medications: Ambulatory Orders NK [No Known Home Medication] 02/08/19 - AMA Did Patient Leave Against Medical Advice: Yes
[2019-05-05] MEDS: PRENATAL VITAMINS W/ FOLIC ACID TABLET (FP) PO SCH (10:11)
[2019-05-05] MEDS: NICOTINE 14 MG/24 HOURS TOPICAL PATCH TD SCH (10:12)
[2019-05-06] MEDS ORDERED: METHADONE HCL 5 MG TABLET (FOR DETOX USE ONLY) PO ONE (06:00)
[2019-05-06] MEDS ORDERED: diazePAM 5 MG TABLET PO SCH (06:00)
== END 2019-05-05 10:20 | disposition left against medical advice (07) | DRG 894 ==
LOC: YASAS 20:12 → Y6N 21:08
PROVIDERS: ADMIT Surgery; ATTEND Surgery
PROC: HZ2ZZZZ Detoxification Services for Substance Abuse Treatment (ICD-10-PCS; principal; 2019-05-03)
DX: F11.23 Opioid dependence with withdrawal (principal); F14.20 Cocaine dependence, uncomplicated; F12.20 Cannabis dependence, uncomplicated; F17.210 Nicotine dependence, cigarettes, uncomplicated; E80.6 Other disorders of bilirubin metabolism; Z88.2 Allergy status to sulfonamides; Z88.0 Allergy status to penicillin
CPT/HCPCS: 36415; 80053; 85027; 86593

== ENCOUNTER 2024-02-18 15:50 | Inpatient (IN) | payer OTHER ==
[2024-02-18 16:53] VITALS: BMI 23.8
[2024-02-18] MEDS ORDERED: IBUPROFEN 400 MG TABLET (FP) PO PRN (17:30)
[2024-02-18] MEDS ORDERED: IBUPROFEN 600 MG TABLET (FP) PO PRN (17:30)
[2024-02-18] MEDS ORDERED: MAG HYDROX/AL HYDROX/SIMETH 30 ML UNIT-DOSE CUP PO PRN (17:30)
[2024-02-18] MEDS ORDERED: NALOXONE HCL (KLOXXADO) 8 MG SPRAY NS PRN (17:30)
[2024-02-18] MEDS ORDERED: LOPERAMIDE HCL 2 MG CAPSULE PO PRN (17:30)
[2024-02-18] MEDS ORDERED: POLYETHYLENE GLYCOL (HEALTHYLAX) 3350 17 GM PACKET PO PRN (17:30)
[2024-02-18] MEDS ORDERED: guaiFENesin 600 MG TABLET.ER (FP) PO PRN (17:30)
[2024-02-18] MEDS ORDERED: ACETAMINOPHEN 325 MG TABLET (FP) PO PRN (17:30)
[2024-02-18] MEDS ORDERED: BENZONATATE 200 MG CAPSULE PO PRN (17:30)
[2024-02-18] MEDS ORDERED: BENZOCAINE/MENTHOL (CHLORASEPTIC ) LOZENGE MM PRN (17:30)
[2024-02-18] MEDS ORDERED: NALOXONE HCL 0.4 MG/ML VIAL IM PRN (17:30)
[2024-02-18] MEDS ORDERED: MAGNESIUM HYDROX 2400MG/30ML ORAL SUSPENSION 30 ML CUP PO PRN (17:30)
[2024-02-18] MEDS ORDERED: DICYCLOMINE HCL 10 MG CAPSULE PO PRN (17:30)
[2024-02-18] MEDS ORDERED: BISMUTH SUBSALICYLATE 524 MG/30 ML PO PRN (17:30)
[2024-02-18] MEDS: hydrOXYzine PAMOATE 25 MG CAPSULE (FP) PO PRN (22:42)
[2024-02-18] MEDS: MELATONIN 5 MG TABLETS PO SCH (22:42)
[2024-02-18] MEDS: METHOCARBAMOL 500 MG TABLET PO PRN (22:42)
[2024-02-18] MEDS: THIAMINE HCL 100 MG TABLET (FP) PO SCH (22:42)
[2024-02-19] MEDS: ONDANSETRON *ODT* 4 MG TABLET SL PRN (05:07)
[2024-02-19] MEDS: methaDONE HCL 10 MG TABLET (FOR DETOX USE ONLY) PO ONE (10:07)
[2024-02-19] MEDS: PRENATAL VITAMINS W/ FOLIC ACID TABLET (FP) PO SCH (10:07)
[2024-02-19] MEDS: diazePAM 5 MG TABLET PO SCH (10:08)
[2024-02-19] MEDS: cloNIDine HCL 0.1 MG TABLET PO PRN (11:42)
[2024-02-19] MEDS: TRIMETHOBENZAMIDE HCL 200MG/2ML INJ IM ONE (21:21)
[2024-02-19] MEDS: diazePAM 5 MG TABLET PO PRN (22:58)
[2024-02-21] MEDS: diazePAM 5 MG TABLET PO SCH (05:26)
[2024-02-21] MEDS: methaDONE HCL 10 MG TABLET (FOR DETOX USE ONLY) PO ONE (09:51)
[2024-02-21 11:42] LABS: HEMATOCRIT 42.1 % (35.4-49); HEMOGLOBIN 14.1 GM/dL (11.7-16.9); MCHC 33.5 g/dl (32.0-35.9); MEAN CELL VOLUME 83.6 fl (80-96); MEAN PLT VOLUME 7.7 fl (7.5-11.1); PLATELET COUNT 520 10^3/uL (134-434); RBC 5.04 M/mm3 (4.00-5.60); RDW 15.3 % (11.9-15.9); WHITE BLOOD COUNT 6.5 K/mm3 (4.0-10.0)
[2024-02-21] MEDS: amLODIPine BESYLATE 10 MG TABLET (FP) PO SCH (11:44)
[2024-02-21 12:03] LABS: CALCIUM 9.8 mg/dL (8.5-10.1)
[2024-02-21 12:04] LABS: ALBUMIN 3.6 g/dl (3.4-5.0); BLOOD UREA NITROGEN 9.9 mg/dL (7-18)
[2024-02-21 12:07] LABS: CREATININE 0.7 mg/dL (0.55-1.3)
[2024-02-21 12:09] LABS: BILIRUBIN,TOTAL 1.8 mg/dL (0.2-1); TOT PROT 10.4 g/dl (6.4-8.2)
[2024-02-21 21:38] VITALS: RESP 18
[2024-02-22] MEDS: diazePAM 5 MG TABLET PO SCH (05:27)
[2024-02-22 10:10] VITALS: BP 145/83; PULSE 98; TEMP 97.2
[2024-02-23] MEDS ORDERED: diazePAM 5 MG TABLET PO ONE (06:00)
[2024-02-23] MEDS ORDERED: methaDONE HCL 10 MG TABLET (FOR DETOX USE ONLY) PO ONE (10:00)
== END 2024-02-22 10:45 | disposition left against medical advice (07) | DRG 770 ==
LOC: YASAS 15:50 → Y6N 17:51
PROVIDERS: ADMIT Allergy & Immunology; ATTEND Surgery
PROC: HZ2ZZZZ Detoxification Services for Substance Abuse Treatment (ICD-10-PCS; principal; 2024-02-18)
DX: F11.23 Opioid dependence with withdrawal (principal); F13.230 Sedative, hypnotic or anxiolytic dependence with withdrawal, uncomplicated; F14.20 Cocaine dependence, uncomplicated; F17.220 Nicotine dependence, chewing tobacco, uncomplicated; F17.210 Nicotine dependence, cigarettes, uncomplicated; F17.290 Nicotine dependence, other tobacco product, uncomplicated; F19.282 Other psychoactive substance dependence with psychoactive substance-induced sleep disorder; I10 Essential (primary) hypertension; R00.1 Bradycardia, unspecified; Z28.310 Unvaccinated for COVID-19; Z28.9 Immunization not carried out for unspecified reason; Z88.0 Allergy status to penicillin; Z88.2 Allergy status to sulfonamides
CPT/HCPCS: 36415; 80053; 85027; 86780; 93005; 93010; Q0162

== ENCOUNTER 2024-03-16 17:34 | Inpatient (IN) | payer OTHER ==
[2024-03-16 19:36] VITALS: BMI 22.8
[2024-03-16] MEDS ORDERED: MAG HYDROX/AL HYDROX/SIMETH 30 ML UNIT-DOSE CUP PO PRN (20:21)
[2024-03-16] MEDS ORDERED: ACETAMINOPHEN 325 MG TABLET (FP) PO PRN (20:21)
[2024-03-16] MEDS ORDERED: hydrOXYzine PAMOATE 25 MG CAPSULE (FP) PO PRN (20:21)
[2024-03-16] MEDS ORDERED: ONDANSETRON *ODT* 4 MG TABLET SL PRN (20:21)
[2024-03-16] MEDS ORDERED: BISMUTH SUBSALICYLATE 524 MG/30 ML PO PRN (20:21)
[2024-03-16] MEDS ORDERED: MAGNESIUM HYDROX 2400MG/30ML ORAL SUSPENSION 30 ML CUP PO PRN (20:21)
[2024-03-16] MEDS ORDERED: BENZONATATE 200 MG CAPSULE PO PRN (20:21)
[2024-03-16] MEDS ORDERED: IBUPROFEN 400 MG TABLET (FP) PO PRN (20:21)
[2024-03-16] MEDS ORDERED: IBUPROFEN 600 MG TABLET (FP) PO PRN (20:21)
[2024-03-16] MEDS ORDERED: BENZOCAINE/MENTHOL (CHLORASEPTIC ) LOZENGE MM PRN (20:21)
[2024-03-16] MEDS ORDERED: NICOTINE POLACRILEX 2 MG GUM BUC PRN (20:21)
[2024-03-16] MEDS ORDERED: guaiFENesin 600 MG TABLET.ER (FP) PO PRN (20:21)
[2024-03-16] MEDS ORDERED: P-EPHED 60MG/TRIPROLIDI 2.5MG TABLET PO PRN (20:21)
[2024-03-16] MEDS ORDERED: POLYETHYLENE GLYCOL (HEALTHYLAX) 3350 17 GM PACKET PO PRN (20:21)
[2024-03-16] MEDS ORDERED: NALOXONE HCL (KLOXXADO) 8 MG SPRAY NS PRN (20:21)
[2024-03-16] MEDS ORDERED: NALOXONE HCL 0.4 MG/ML VIAL IM PRN (20:21)
[2024-03-16] MEDS ORDERED: LOPERAMIDE HCL 2 MG CAPSULE PO PRN (20:21)
[2024-03-16] MEDS ORDERED: DICYCLOMINE HCL 10 MG CAPSULE PO PRN (20:21)
[2024-03-16] MEDS ORDERED: METHOCARBAMOL 500 MG TABLET PO PRN (20:21)
[2024-03-16] MEDS: MELATONIN 5 MG TABLETS PO SCH (22:41)
[2024-03-16] MEDS: THIAMINE 100 MG TABLET PO SCH (22:41)
[2024-03-17] MEDS: PRENATAL VITAMINS W/ FOLIC ACID TABLET (FP) PO SCH (10:28)
[2024-03-17] MEDS: cloNIDine HCL 0.1 MG TABLET PO SCH (13:20)
[2024-03-17] MEDS: BUPRENORPHINE/NALOXONE 0.5 MG/0.125 MG FILM SL ONE ×2 (13:20→22:28)
[2024-03-17] MEDS: diazePAM 5 MG TABLET PO SCH (17:06)
[2024-03-18] MEDS: BUPRENORPHINE/NALOXONE 0.5 MG/0.125 MG FILM SL SCH (10:47)
[2024-03-18] MEDS: MAGNESIUM OXIDE 400 MG TABLET (FP) PO SCH (11:22)
[2024-03-18] MEDS: diazePAM 5 MG TABLET PO PRN (15:17)
[2024-03-18] MEDS: TRIMETHOBENZAMIDE HCL 200MG/2ML INJ IM ONE (15:17)
[2024-03-18] MEDS: methaDONE HCL 10 MG TABLET (FOR DETOX USE ONLY) PO ONE ×2 (16:39→19:51)
[2024-03-19] MEDS: diazePAM 5 MG TABLET PO SCH (05:40)
[2024-03-19] MEDS ORDERED: BUPRENORPHINE/NALOXONE 2 MG/0.5 MG FILM PACKET SL SCH (10:00)
[2024-03-19 10:16] VITALS: RESP 18
[2024-03-19 13:05] VITALS: BP 159/98; PULSE 84; TEMP 98.2
[2024-03-19] MEDS: cloNIDine HCL 0.1 MG TABLET PO PRN (13:49)
[2024-03-20] MEDS ORDERED: diazePAM 5 MG TABLET PO SCH (06:00)
[2024-03-20] MEDS ORDERED: methaDONE HCL 10 MG TABLET (FOR DETOX USE ONLY) PO ONE (10:00)
[2024-03-20] MEDS ORDERED: BUPRENORPHINE/NALOXONE 4 MG/1 MG FILM PACKET SL SCH (10:00)
[2024-03-21] MEDS ORDERED: diazePAM 5 MG TABLET PO ONE (06:00)
[2024-03-21] MEDS ORDERED: BUPRENORPHINE/NALOXONE 8 MG/2 MG FILM PACKET SL SCH (10:00)
[2024-03-22] MEDS ORDERED: methaDONE HCL 10 MG TABLET (FOR DETOX USE ONLY) PO ONE (10:00)
[2024-03-22] MEDS ORDERED: BUPRENORPHINE/NALOXONE 8 MG/2 MG FILM PACKET SL SCH (10:00)
== END 2024-03-19 15:06 | disposition home or self-care (01) | DRG 773 ==
LOC: YASAS 17:34 → Y3N 20:40
PROVIDERS: ADMIT Allergy & Immunology; ATTEND Surgery
PROC: HZ2ZZZZ Detoxification Services for Substance Abuse Treatment (ICD-10-PCS; principal; 2024-03-16)
DX: F11.23 Opioid dependence with withdrawal (principal); F13.20 Sedative, hypnotic or anxiolytic dependence, uncomplicated; F14.20 Cocaine dependence, uncomplicated; F12.20 Cannabis dependence, uncomplicated; F17.210 Nicotine dependence, cigarettes, uncomplicated; F19.282 Other psychoactive substance dependence with psychoactive substance-induced sleep disorder; M62.838 Other muscle spasm; R11.10 Vomiting, unspecified; R74.01 Elevation of levels of liver transaminase levels; Z28.310 Unvaccinated for COVID-19; Z28.9 Immunization not carried out for unspecified reason; Z88.2 Allergy status to sulfonamides; Z88.0 Allergy status to penicillin
CPT/HCPCS: 93005; 93010

== ENCOUNTER 2024-03-18 19:55 | Emergency (ER) | payer OTHER ==
[2024-03-18 20:20] VITALS: BP 165/87; PULSE 59; RESP 18; TEMP 98.5; BMI 20.7
[2024-03-18] MEDS ORDERED: METOCLOPRAMIDE HCL INJECTION 10 MG/2 ML VIAL ONE (20:47)
[2024-03-18 21:24] LABS: BASO % 0.4 % (0-2.0); HEMATOCRIT 42.6 % (35.4-49); HEMOGLOBIN 14.3 GM/dL (11.7-16.9); LYMPH % 15.8 % (8-40); MCH 27.8 pg (25.7-33.7); MCHC 33.5 g/dl (32.0-35.9); MEAN CELL VOLUME 83.1 fl (80-96); MEAN PLT VOLUME 6.8 fl (7.5-11.1); MONO % 3.7 % (3.8-10.2); NEUT % 80.1 % (42.8-82.8); PLATELET COUNT 516 10^3/uL (134-434); RBC 5.13 M/mm3 (4.00-5.60); RDW 15.6 % (11.9-15.9); WHITE BLOOD COUNT 7.9 K/mm3 (4.0-10.0)
[2024-03-18] MEDS: METOCLOPRAMIDE HCL INJECTION 10 MG/2 ML VIAL IVPUSH ONE (21:29)
[2024-03-18] MEDS: SODIUM CHLORIDE 0.9% 500 ML INFUS.BAG IV ONE ×2 (21:29→22:34)
[2024-03-18 21:42] LABS: POTASSIUM 5.3 mmol/L (3.5-5.1)
[2024-03-18 21:44] LABS: ALBUMIN 3.7 g/dl (3.4-5.0); BLOOD UREA NITROGEN 12.7 mg/dL (7-18); CALCIUM 9.6 mg/dL (8.5-10.1)
[2024-03-18 21:47] LABS: CREATININE 0.7 mg/dL (0.55-1.3)
[2024-03-18 21:49] LABS: BILIRUBIN,TOTAL 0.8 mg/dL (0.2-1); TOT PROT 10.9 g/dl (6.4-8.2)
[2024-03-18] MEDS: HALOPERIDOL LACTATE 5 MG/ML IM ONE (22:18)
[2024-03-18 23:36] LABS: BILIRUBIN,DIRECT 0.2 mg/dL (0.0-0.2)
[2024-03-18 23:47] LABS: POTASSIUM 3.7 mmol/L (3.5-5.1)
[2024-03-18 23:49] LABS: BLOOD UREA NITROGEN 14.8 mg/dL (7-18); CALCIUM 9.4 mg/dL (8.5-10.1)
[2024-03-18 23:50] LABS: ALBUMIN 3.4 g/dl (3.4-5.0); MAGNESIUM 2.1 mg/dL (1.8-2.4)
[2024-03-18 23:52] LABS: BILIRUBIN,DIRECT 0.2 mg/dL (0.0-0.2); CREATININE 0.8 mg/dL (0.55-1.3)
[2024-03-18 23:54] LABS: BILIRUBIN,TOTAL 0.7 mg/dL (0.2-1); TOT PROT 10.1 g/dl (6.4-8.2)
== END 2024-03-19 01:20 | disposition home or self-care (01) ==
LOC: JER 19:55
PROC: 3E033GC Introduction of Other Therapeutic Substance into Peripheral Vein, Percutaneous Approach (ICD-10-PCS; principal; 2024-03-18)
PROC: 3E033GC Introduction of Other Therapeutic Substance into Peripheral Vein, Percutaneous Approach (ICD-10-PCS; 2024-03-18)
DX: F11.23 Opioid dependence with withdrawal (principal); R11.2 Nausea with vomiting, unspecified; R10.84 Generalized abdominal pain
CPT/HCPCS: 36415; 80048; 80053; 80076; 82977; 83735; 85025; 93005; 93010; 99284-25